=== PATIENT | female | born 1990 | race African-American/Black ===

== ENCOUNTER 2019-09-16 18:42 | Emergency (ER) | payer OTHER, SELFPAY ==
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
[2019-09-16 19:09] VITALS: BP 138/76; PULSE 86; RESP 18; TEMP 36.5; O2SAT 99
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
== END 2019-09-16 23:20 | disposition home or self-care (01) ==
PROVIDERS: Emergency Provider Emergency Medicine
DX: G80.9 Cerebral palsy, unspecified (principal); S16.1XXA Strain of muscle, fascia and tendon at neck level, initial encounter; S29.012A Strain of muscle and tendon of back wall of thorax, initial encounter; V43.12XA Car passenger injured in collision with other type car in nontraffic accident, initial encounter
CPT/HCPCS: 72100; 72125; 81025; 99284

== ENCOUNTER 2019-10-07 20:01 | Emergency (ER) | payer OTHER, SELFPAY ==
--- NOTE | ~2019-10-07 | XR_ITS ---
EXAMINATION: XR chest 1V portable DATE: 10/07/2019 21:01 INDICATION: Fever, shortness of breath, and cough. TECHNIQUE: A single frontal view of the chest was obtained. COMPARISON: None. FINDINGS: The chest demonstrates clear lungs without pneumonia, pleural effusion, or pneumothorax. Th e heart size is normal. IMPRESSION: 1. No acute cardiopulmonary disease. Reviewed, dictated and finalized at location A.
[2019-10-07 20:04] VITALS: BP 133/58; PULSE 127; RESP 22; TEMP 38.6; O2SAT 100
--- NOTE | 2019-10-07 20:36 | ED.FEVER ---
HPI - Fever General Chief Complaint: Fever Stated Complaint: cough Time Seen by Provider: 10/07/19 20:32 Source: patient Mode of arrival: ambulatory Limitations: no limitations History of Present Illness HPI Narrative: The pt is a 29 y/o female who presents to the ED c/o fever onset two days ago. Pt states that she was around a friend who was told to self-quarantine after traveling to [place], [place]. She notes that her friend was having cold symptoms a couple of weeks ago, but is unsure who told her to quarantine. 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 She states that he has been doing most of the running around, and has been sick. Pt states that her two youngest children were tested for 2019-nCoV today due to similar symptoms, but no other tests were performed. She states that she took them to Dr. Royal in [place], [place]. The pt states that she has tried Tylenol, but also notes that her fever has gotten as high as 105 degrees. Pt states that she was told to self-quarantine, and she should call the ED if she had worsening symptoms develop. She notes that she believes she got a flu shot. Pt reports sore throat, SMITH, cough, SOB, myalgia, fatigue, and rhinorrhea. She denies N/V/D. Pt notes that she does not have a PCP, but has been seeing Dr. Wisdom at the [facility]'s [place]. elicited complaint: fever Onset (ago): day(s) (2) Context: sick contacts Associated symptoms: myalgias, headache, rhinorrhea, sore throat, cough, shortness of breath and other (Fatigue) Treatments prior to arrival fever: acetaminophen Related Data Home Medications Medication Instructions Recorded Confirmed [id number] 1 tablet PO HS 10/07/19 [ 19] Allergies Allergy/AdvReac Type Severity Reaction Status Date / Time hydrocodone AdvReac Unknown ITCHING Verified 10/07/19 20:31 Review of Systems Review of Systems: All systems reviewed & are unremarkable except as noted in HPI and below Constitutional: Constitutional: Reports fatigue and Reports fever(s) ENT: Reports sore throat and Reports other (Rhinorrhea) Respiratory: Respiratory: Reports cough and Reports dyspnea Gastrointestinal: Gastrointestinal: Denies diarrhea, Denies nausea and Denies vomiting Musculoskeletal: Musculoskeletal: Reports myalgias Neurologic: Reports headache(s) [facility] Past Medical History Medical History (Updated 10/07/19 @ 23:11 by Belle Mohamud MD) Cerebral palsy induced hypertension Umbilical hernia Surgical History Surgical History (Updated 09/16/19 @ 21:09 by Geovanna Zayas) History of umbilical hernia repair Social History Social History (Updated 09/16/19 @ 21:10 by Geovanna Zayas) Smoking status: Never smoker Gender identity (if verbalized by the patient): Female Comments OB: Dr. Wisdom Exam Const: General: cooperative, no acute distress and alert Nutritional Appearance: well nourished Orientation/consciousness: patient oriented x3 Limitations: no limitations Resp: Effort & Inspection: normal respiratory effort Auscultation: clear to auscultation bilaterally Cardio: Rate: tachycardic Rhythm: regular rhythm GI: GI Palp: Yes Soft to palpation and No Tenderness to palpation present (GI) Auscultation: normal bowel sounds Skin: General skin exam: normal color Neuro: General: patient oriented x3 Cognition (Neuro): normal cognition Speech: normal speech Extrem: General: normal to inspection, full ROM and no clubbing, cyanosis or edema Psych: Mental Status: mental status grossly normal Affect: normal affect Attitude: cooperative Course SENIOR LINUX SYSTEMS ADMINISTRATOR/PA Physician Supervision Patient with unremarkable testing in the emergency department. Patient has symptoms consistent with viral syndrome. Cannot exclude possibility patient may have notable coronavirus infection. Tomeka
[2019-10-07 21:45] LABS: Basophils Percent Auto 0.3 % (0.2-1.2); Eosinophils Absolute Auto 0.2 K/mm3 (0-0.3); Eosinophils Percent Auto 1.4 % (0-4.4); Hematocrit 39.6 % (37.0-47.0); Hemoglobin 13.2 g/dL (12.0-15.0); Immature Granulocyte Absolute 0.04 K/mm3 (0.00-0.031); Immature Granulocyte Percent A 0.4 % (0-0.5); Lymphocytes Absolute Auto 1.47 K/mm3 (0.9-3.2); Lymphocytes Percent Auto 14.1 % (18.3-44.2); Mean Corpuscular HGB Conc 33.3 g/dl (32-36); Mean Corpuscular Hemoglobin 26.5 pg (26-34); Mean Corpuscular Volume 79.5 fl (80-100); Mean Platelet Volume 10.4 fl (7.4-10.4); Neutrophils Absolute Auto 7.7 K/mm3 (1.3-6.7); Neutrophils Percent Auto 73.8 % (45.5-73.1); Platelet Count Result 346 k/mm3 (150-375); Red Blood Count 4.98 M/mm3 (4.2-5.4); Red Cell Distribution Width 15.7 % (11.5-14.5); White Blood Count 10.4 K/mm3 (4.5-10.0)
--- NOTE | 2019-10-07 21:54 | PC.NURSE ---
Pt. refused IV placement and medication stating she doesn't see the point in them due to her having test ran. MD Christie notified.
[2019-10-07 21:56] LABS: Lactic Acid Reflex 0.7 mmol/L (0.7-2.1)
[2019-10-07 21:57] LABS: Alanine Aminotransferase 16 U/L (4-35); Albumin Level 4.5 g/dL (3.5-5.1); Alkaline Phosphatase 141 U/L (38-126); Aspartate Amino Transferase 27 U/L (14-36); Bilirubin,Total 0.6 mg/dL (0.2-1.3); Blood Urea Nitrogen 7 mg/dL (7-17); Calcium 8.9 mg/dL (8.4-10.2); Carbon Dioxide 25 mmol/L (22-30); Chloride 101 mmol/L (98-107); Estimated Glomerular Filt Rate > 60; Glucose 90 mg/dL (65-105); Potassium 3.6 mmol/L (3.4-5.0); Sodium 136 mmol/L (137-145)
[2019-10-07 21:59] LABS: Add Urine Microscopic? YES; Appearance Urine Clear (Clear); Bilirubin Urine Negative (Negative); Blood Urine Negative (Negative); Color Urine Yellow (Yellow); Glucose Urine UA Negative (Negative); Ketones Urine Negative (Negative); Leukocyte Esterase Ur 1+ LEU/UL (Negative); Mucus Urine Moderate /lpf; Nitrate Urine Negative (Negative); Protein Urine 1+ mg/dL (Negative); RBC Urine 0-2 /hpf (0-2); Squamous Epithelial Cell Urine Many /hpf (Few); WBC Urine 0-3 /hpf
[2019-10-07 22:00] LABS: Specific Grav Ur 1.032 (1.001-1.035)
== END 2019-10-07 23:22 | disposition home or self-care (01) ==
PROVIDERS: Emergency Provider Emergency Medicine
DX: B34.9 Viral infection, unspecified (principal); G80.9 Cerebral palsy, unspecified
CPT/HCPCS: 36415; 71045; 80053; 81001; 83605; 85025; 86140; 87040; 87081; 87804; 87880; 99283

== ENCOUNTER 2021-02-08 19:18 | Observation (INO) | payer OTHER, SELFPAY ==
[2021-02-08 19:37] VITALS: BP 130/68; PULSE 81
[2021-02-08 19:45] VITALS: BP 127/69; PULSE 85; BMI 36.9
--- NOTE | 2021-02-08 19:51 | OBADM ---
This patient, Angella Santos, admitted to the OB room OB Post 117 for observation. Patient/family oriented to hospital policies and general routines including ID bracelet, bed and alarms, visiting hours, pain management, procedures, bathroom and other care routines, personal items, smoking policy, room service/diet, and visiting hours. Patient/Family are encouraged to report perceived risks to care and to ask questions if they do not understand what they are told or what they should do.
--- NOTE | 2021-02-08 19:51 | PC.NURSE ---
pt fell down 6-7 steps at home prior to arrival. pt states she lost balance and fell onto left hip/side. pt denies leaking or bleeding. pt states she feels occasional flutter movements, none since fall. no pain with palpation. pt abd soft and non tender.
[2021-02-08 19:55] VITALS: RESP 18; TEMP 36.5
--- NOTE | 2021-03-10 19:08 | PM.OBTRLD ---
OB - Triage/Final Diagnosis Visit Information Comments/Additional reasons for admission: I have assessed the risk for this patient, Angella Santos, and determined that she would benefit from observation care. Final Diagnosis (1) Fall: Code(s): W19.XXXA - Unspecified fall, initial encounter Status: Acute
== END 2021-02-08 20:14 | disposition home or self-care (01) ==
PROVIDERS: Admitting Provider Obstetrics & Gynecology; PCP Family Medicine; Visit Provider Obstetrics & Gynecology
DX: O26.892 Other specified pregnancy related conditions, second trimester (principal); W19.XXXA Unspecified fall, initial encounter; Z3A.19 19 weeks gestation of pregnancy
CPT/HCPCS: G0378; G0379

== ENCOUNTER 2021-03-20 16:31 | Outpatient (CLI) | payer OTHER, SELFPAY ==
[2021-03-20] VITALS (28 sets, daily range): BP systolic 98–124; BP diastolic 60–81; PULSE 90–107; RESP 30; TEMP 36.7; O2SAT 93–100; BMI 38.7
--- NOTE | 2021-03-20 17:27 | PC.NURSE ---
Shahid Borja CNM returned page and informed of pt's c/o headache x's 3 days, dizziness and blurred vision started today. RUQ tightness discomfort. Pt states the BP she checked at home was 160/114. BP here 124/74. Discussed pt's resp rate of 30 at rest in bed. Pt denies feeling SOB. O2 sats 96-97%. Pt states she was tested for COVID in the last half of February, but was negative- symptoms have resolved and pt has been afebrile for days. Informed of single variable decel in tracing appropriate for 25 wks gestation. No contractions noted. Order received to obtain baseline labs.
[2021-03-20] MEDS: ACETAMINOPHEN 500 MG TABLET 1000 MG PO (18:04)
[2021-03-20 18:14] LABS: Basophils Percent Auto 0.2 % (0.2-1.2); Eosinophils Absolute Auto 0.1 K/mm3 (0-0.3); Hematocrit 36.4 % (37.0-47.0); Immature Granulocyte Absolute 0.07 K/mm3 (0.00-0.031); Immature Granulocyte Percent A 0.7 % (0-0.5); Lymphocytes Absolute Auto 1.96 K/mm3 (0.9-3.2); Lymphocytes Percent Auto 18.5 % (18.3-44.2); Mean Corpuscular Hemoglobin 28.5 pg (26-34); Mean Corpuscular Volume 86.5 fl (80-100); Mean Platelet Volume 9.9 fl (7.4-10.4); Monocytes Absolute Auto 0.9 K/mm3 (0.1-0.6); Monocytes Percent Auto 8.6 % (2.6-8.5); Neutrophils Absolute Auto 7.5 K/mm3 (1.3-6.7); Platelet Count Result 346 k/mm3 (150-375); Red Blood Count 4.21 M/mm3 (4.2-5.4); Red Cell Distribution Width 15.1 % (11.5-14.5); White Blood Count 10.6 K/mm3 (4.5-10.0)
[2021-03-20 18:23] LABS: Creatinine Urine 104.9 mg/dL; Total Protein Urine Random 9 mg/dL; Ur Ttl Prot Creatinine Ratio 0.09 mg/mg (0-0.20)
[2021-03-20 18:23] LABS: Alanine Aminotransferase 11 U/L (4-35); Albumin Level 3.4 g/dL (3.5-5.1); Alkaline Phosphatase 81 U/L (38-126); Anion Gap 5 mmol/L (8-16); Aspartate Amino Transferase 22 U/L (14-36); Bilirubin,Total 0.4 mg/dL (0.2-1.3); Blood Urea Nitrogen 6 mg/dL (7-17); Calcium 8.7 mg/dL (8.4-10.2); Carbon Dioxide 20 mmol/L (22-30); Chloride 107 mmol/L (98-107); Estimated Glomerular Filt Rate > 60; Glucose 93 mg/dL (65-110); Potassium 3.4 mmol/L (3.4-5.0); Sodium 132 mmol/L (137-145); Uric Acid 2.9 mg/dL (2.5-7.5)
[2021-03-20 18:34] LABS: Add Urine Microscopic? YES; Appearance Urine Clear (Clear); Bilirubin Urine Negative (Negative); Blood Urine Negative (Negative); Color Urine Yellow (Yellow); Glucose Urine UA Negative (Negative); Ketones Urine Negative (Negative); Leukocyte Esterase Ur Negative LEU/UL (Negative); Mucus Urine Rare /lpf; Nitrate Urine Negative (Negative); Protein Urine Negative (Negative); RBC Urine 0-2 /hpf (0-2); Specific Grav Ur 1.014 (1.001-1.035); Squamous Epithelial Cell Urine Occasional /hpf (Few); WBC Urine 0-3 /hpf
== END 2021-03-20 19:25 | disposition home or self-care (01) ==
LOC: ANHOBOP 16:35 → ANHOBPP 16:36
PROVIDERS: Advanced Practice Midwife; PCP Family Medicine; Visit Provider Obstetrics & Gynecology
DX: O16.2 Unspecified maternal hypertension, second trimester (principal); Z3A.25 25 weeks gestation of pregnancy
CPT/HCPCS: 36415; 59025; 80053; 81001; 82570; 84156; 84550; 85025; 99199; A9270

== ENCOUNTER 2021-05-17 01:02 | Observation (INO) | payer OTHER, SELFPAY ==
[2021-05-17 01:19] VITALS: BP 130/76; PULSE 104
[2021-05-17 01:56] LABS: Add Urine Microscopic? YES; Appearance Urine Cloudy (Clear); Bacteria Urine Trace /hpf; Bilirubin Urine Negative (Negative); Blood Urine Negative (Negative); Color Urine Amber (Yellow); Glucose Urine UA Negative (Negative); Ketones Urine Negative (Negative); Leukocyte Esterase Ur 1+ LEU/UL (NEGATIVE); Mucus Urine Rare /lpf; Nitrate Urine Negative (Negative); Protein Urine 1+ mg/dL (Negative); RBC Urine 0-2 /hpf (0-2); Specific Grav Ur 1.029 (1.001-1.035); Squamous Epithelial Cell Urine Many /hpf (Few)
[2021-05-17 02:00] VITALS: BMI 40.0
[2021-05-17] MEDS: DEXTROSE 5%/LACTATED RINGERS 1,000 ML 999 ML IV CONT (02:36)
[2021-05-17] MEDS: CYCLOBENZAPRINE HCL 10 MG TABLET PO (02:47)
[2021-05-17] MEDS: ONDANSETRON INJ 4 MG/2 ML VIAL IV PUSH (02:47)
[2021-05-17 03:45] VITALS: TEMP 36.7
--- NOTE | 2021-05-17 06:15 | OBADM ---
This patient, Angella Santos, admitted to the OB room OB Post 116 for observation. Patient/family oriented to hospital policies and general routines including ID bracelet, bed and alarms, visiting hours, pain management, procedures, bathroom and other care routines, personal items, smoking policy, room service/diet, and visiting hours. Patient/Family are encouraged to report perceived risks to care and to ask questions if they do not understand what they are told or what they should do.
--- NOTE | 2021-05-31 08:00 | PM.OBTRLD ---
OB - Triage/Final Diagnosis Visit Information Comments/Additional reasons for admission: I have assessed the risk for this patient, Angella Santos, and determined that she would benefit from observation care. Evaluation Laboratory results: Laboratory Tests 05/17/21 01:22 Urine Color Danna Urine Appearance Cloudy H Urine pH 6.0 Ur Specific Stirling 1.029 Urine Protein 1+ H Urine Glucose (UA) Negative Urine Ketones Negative Ur Blood (Man) Negative Urine Nitrate Negative Urine Bilirubin Negative Urine Urobilinogen 4.0 H Ur Leukocyte Esterase 1+ H Urine RBC 0-2 Urine WBC 4-6 H Ur Squamous Epith Cells Many H Urine Bacteria Trace Urine Mucus Rare Final Diagnosis (1) False labor: Code(s): O47.9 - False labor, unspecified Status: Acute
== END 2021-05-17 06:00 | disposition home or self-care (01) ==
PROVIDERS: Admitting Provider Obstetrics & Gynecology; PCP Family Medicine; Visit Provider Obstetrics & Gynecology
DX: O47.03 False labor before 37 completed weeks of gestation, third trimester (principal); Z3A.33 33 weeks gestation of pregnancy
CPT/HCPCS: 81001; 87086; 87088; 96374; A9270; G0378; G0379; J2405; J7121

== ENCOUNTER 2021-06-17 14:07 | Inpatient (IN) | payer OTHER, SELFPAY ==
[2021-06-17] VITALS (16 sets, daily range): BP systolic 85–162; BP diastolic 14–88; PULSE 102–123; TEMP 36.6–37.2; BMI 50.5
--- NOTE | 2021-06-17 14:07 | OBADM ---
This patient, Angella Santos, admitted to the OB room Labor/Delivery/Recovery 105 for observation. Patient/family oriented to hospital policies and general routines including ID bracelet, bed and alarms, visiting hours, pain management, procedures, bathroom and other care routines, personal items, smoking policy, room service/diet, and visiting hours. Patient/Family are encouraged to report perceived risks to care and to ask questions if they do not understand what they are told or what they should do.
--- NOTE | 2021-06-17 19:50 | LDADM ---
This patient, Angella Santos, was admitted to Labor/Delivery/Recovery 105 on 06/17/21 at 14:07. Plans for labor, pain management and were discussed with patient. Patient/family oriented to hospital policies and general routines including ID bracelet, bed and alarms, visiting hours, pain management, procedures, bathroom and other care routines, personal items, smoking policy, room service/diet and guest tray routines, security routines, and visiting hours. Patient/Family are encouraged to report perceived risks to care and to ask questions if they do not understand what they are told or what they should do. See OBIX for further documentation.
--- OUTSIDE RECORDS SUMMARY | 2021-06-17 19:51 | XMS_ITS ---
:1990 Author Care Team Providers Name Role Phone Chloe Camp Primary Care Provider Unavailable Allergies Code Code System Name Reaction Severity Status Onset 161 RxNorm Acetaminophen ? ? Active ? 2670 RxNorm Codeine ? ? Active ? Medications Name Status Start Date Stop Date ? ? cyclobenzaprine 10 mg tablet Completed ? TAKE 1 TABLET BY MOUTH THREE TIMES DAILY NEEDED dicloxacillin 500 mg capsule Completed 11/26/201804/2021 take 1 capsule by oral route every 6 h ours 1 hour before a meal or 2 hours after a meal docusate sodium 100 mg capsule Completed ? 08/11/2020 TAKE 1 CAPSULE BY MOUTH TWICE DAILY NEEDED FOR CONSTIPATION Macrobid 100 mg capsule Completed 08/03/2018 09/30/19 19 take 1 capsule by oral route every 12 hours with food [place] (PF) 275 mg/1.1 mL subcutaneous auto-injector Completed ? 05/29/2021 Inject 1 mL by subcutaneous route. ondansetron 8 mg disintegrating tablet Active ? Not available DISSOLVE 1 TABLET ON THE TONGUE TWICE DAILY oxycodone-acetaminophen 5 mg-325 mg tablet Completed ? 05/29/2021 TK 1 T PO Q 4 TO 6 H PRN Pepcid Active ? Not available Active ? Not available Unisom (diphenhydramine) Active ? Not dao ilable Vitamin B6 Active ? Not available Zofran 4 mg tablet Completed 12/23/2016 06/02/2017 take 1 by Oral route every 6 hours as needed Problems Name Status Onset Date Source ? Detection Examination Unknown 12/23/2016
--- OUTSIDE RECORDS SUMMARY | 2021-06-17 19:52 | XMS_ITS ---
:1990 Author Care Team Providers Name Role Phone VIVIAN LANDEROS MD Primary Care Provider [phone] Allergies Code Code System Name Reaction Severity Status Onset 988892 RxNorm Vicodin Itching Moderate to Active ? Severe Medications Name Status Start Date Stop Date ? ? amoxicillin 875 mg-potassium clavulanate Unknown ? Not available 125 mg tablet azithromycin 250 mg tablet Active ? Not a vailable hydrocodone 5 mg-acetaminophen 325 mg Active ? Not available tablet ibuprofen 200 mg tablet Unknown ? Not avai lable Junel FE 08/01 (28) 1 mg-20 mcg (21)/75 mg (7) tablet Active ? Not available Take 1 tablet every day by oral route as directed. meloxicam 7.5 mg tablet Unknown ? Not avai lable Microgestin 08/01 (21) 1 mg-20 mcg tablet Unknown ? Not available naproxen 500 mg tablet Active ? Not avail able Nexplanon 68 mg subdermal implant Unknown ? Not available Inject by subcutaneous route. nitrofurantoin monohydrate/macrocrystals Active ? Not available 100 mg capsule permethrin 5 % topical cream Active ? Not available sulfamethoxazole 800 mg-trimethoprim 160 Unknown ? Not available mg tablet Problems Name Status Onset Date Source ? Cerebral Palsy Active ? Encounter Urinary Tract Infectious Disease Active ? Encounter Pain in Pelvis Active ? Encounter Physiologic Amenorrhea A
--- OUTSIDE RECORDS SUMMARY | 2021-06-17 19:52 | XMS_ITS | Encounter Summary ---
:1990 Author Reason for Visit OB visit 37w2d Assessment and Plan 1. Routine care Discussion Note: None recorded.Patient educational handouts: No information available. Plan of Care Reminders Provider Appointments Ob Routine Elana Camp CNM 06/18/2021 11:15AM ? U/S OB BPP Ultras ound Two, 06/18/2021 TECH 10:30AM ? Nst Nst, , EQUI P 06/18/2021 10:00AM ? Ob Routine Chloe Camp CNM 06/25/2021 11:00AM ? U/S OB BPP Ultras ound Two, 06/25/2021 TECH 10:30AM ? Nst Nst, , EQUI P 06/25/2021 10:00AM ? Ob Routine Chloe Camp CNM 07/02/2021 11:00AM ? U/S OB BPP Ultras ound, TECH 07/02/2021 10:30AM ? Nst Nst, , EQUI P 07/02/2021 10:00AM Lab None ? ? recorded. Referral None ? ? recorded. Procedures None ? ?
--- OUTSIDE RECORDS SUMMARY | 2021-06-17 19:52 | XMS_ITS | Encounter Summary ---
:1990 Author Reason for Visit OB visit Assessment and Plan Assessment Note Patient is ___weeks . Discu ssed plan. 1. Routine care Discussion Note: None recorded.Patient educational handouts: No information available. Plan of Care Reminders Provider Appointments Ob Routine Elana Camp, SUSANNE 06/18/2021 11:15AM ? U/S OB BPP Ultras ound Two, 06/18/2021 TECH 10:30AM ? Nst Nst, , EQUI P 06/18/2021 10:00AM ? Ob Routine Chloe Camp, DRISS 06/25/2021 11:00AM ? U/S OB BPP Ultras ound Two, 06/25/2021 TECH 10:30AM ? Nst Nst, , EQUI P 06/25/2021 10:00AM ? Ob Routine Chloe Camp, DRISS 07/02/2021 11:00AM ? U/S OB BPP Ultras ound, TECH 07/02/2021 10:30AM ? Nst Nst, , EQUI P 07/02/2021 10:00AM Lab None ? ? recorded. Referral None ? ? recorded
--- OUTSIDE RECORDS SUMMARY | 2021-06-17 19:52 | XMS_ITS | Encounter Summary ---
:1990 Author Reason for Visit None recorded. Assessment and Plan 1. Maternal obesity complicating , childbirth and the puerperium, antepartum ? non-stress test Discussion Note: None recorded.Patient educational handouts: No information available. Plan of Care Reminders Provider Appointments Ob Routine Elana Camp, DRISS 06/18/2021 11:15AM ? U/S OB BPP Ultras [...]
--- OUTSIDE RECORDS SUMMARY | 2021-06-17 19:52 | XMS_ITS | Encounter Summary ---
:1990 Author Reason for Visit None recorded. Assessment and Plan 1. Excessive weight gain Discussed diet changes and how to adjust meals to decrease carbs and increase protein and healthy fats. Advised to adjust to a low sugar, low carb diet, and higher proteins. Reviewed different meal adjustments and ways to decrease c arbs with still getting all of the nutrients she needs. Advised to follow 3 meals a day with snacks in between meals with importance on the bedtime snack. Reviewe d nutritional label with patient and how to count carbs for each meal. Advised to be conscientious of meals and record foods that increase her levels and to avoid those types of foods. Reviewed acceptable drinks for patient and what to avoid. Pt states that she is very well versed i n dieting and used to follow a strict diet with successful weight loss. Pt admits to eating bad foods, fast foods, frozen foods, and only cooks on Sundays. Discus sed cooking more home made meals, meal p repping meals if she experiences a lack of time to cook each night. Pt states that she know what she needs to do just mentally getting there. Also discussed symptoms of nausea, visua l changes, dizziness, etc. - advised pt if any symptoms arise to check BP and to call the office for further evaluation and POC. Pt advised likely this weight gai n is causing many different issues and h opefully through better dieting and weight control she will begin to feel better. Pt agrees. All questions answered and explained in depth, no further concerns. Discussion Note: None recorded.Patient educational handouts: No information available. Plan of Care Reminders Provider Appointments Ob Routine Elana Camp CNM 06/18/2021 11:15AM ? U/S OB BPP Ultras ound Two, 06/18/2021 TECH 10
--- OUTSIDE RECORDS SUMMARY | 2021-06-17 19:52 | XMS_ITS | Encounter Summary ---
:1990 Author Reason for Visit OB visit [id number] [place] [id number] LOT [id number] EXP 03/2022 Assessment and Plan Assessment Note Patient is ___weeks . Discu ssed plan. 1. History of premature delivery ? [place] (PF) 275 mg/1.1 mL subcutaneous auto-injector Discussion Note: None recorded.Patient educational handouts: No [...]
--- OUTSIDE RECORDS SUMMARY | 2021-06-17 19:52 | XMS_ITS | Encounter Summary ---
:1990 Author Reason for Visit None recorded. Assessment and Plan 1. Consultation consult regarding co ntractions while nursing 2 1/2 year old. Pt is 30 weeks and attempting to d ecrease nursing with 2 1/2 year old due to contractions with nursing. Pt instructed on distraction methods and different comfort measures to help decrease amount of time 2 1/2 year old nurses. Pt has an over supply of breast milk and easily experiences cl ogged ducts and mastitis with any decreased nursing. Pt would like to decrease the a mount of time the 2 1/2 year old nurses because she is concerned about l abor and delivery but is concerned about fully weaning because she also feels she may need to tandem nurse after delivery to help prevent mastitis. Pt instructed to increase water intake and rest. Pt also instructed on low sugar sports drinks to help with hydration because pt declines regular strength tylenol for relief with uterine irritability. Pt is going to attempt to only nurse 2 1/2 year old at nap and bedtime. Pt will follow up with me next week when she is here for her meryl injectio n. Malu Dinero, MILITARY PAY TECHNICIAN [facility] Discussion Note: None recorded.Patient educational handouts: No information available. Plan of Care Reminders Provider Appointments Ob Routine Elana Camp CNM 06/18/2021 11:15AM ? U/S OB BPP Ultras ound Two, 06/18/2021 TECH 10:30AM ? Nst Nst, , EQUI P 06/18/2021 10:00AM ? Ob Routine Chloe Camp CNM
--- OUTSIDE RECORDS SUMMARY | 2021-06-17 19:52 | XMS_ITS | Encounter Summary ---
:1990 Author Reason for Visit OB visit [id number] upper arm. [facility] [id number] [facility] [id number] EXP 03/2022 MIGUEL ANGEL INJECTION ,RMJohn Assessment and Plan 1. Routine care 2. Fatigue ? TSH, serum or plasma 3. -induced hypertensio n ? CBC w/ auto diff ? CMP, serum or plasma ? uric acid, serum or plasma 4. History of premature delivery ? [place] (PF) 275 mg/1.1 mL subcutaneous auto-injector Discussion [...] 11:00AM ? U/S OB BPP Ultras ound, [place]
--- OUTSIDE RECORDS SUMMARY | 2021-06-17 19:52 | XMS_ITS | Encounter Summary ---
:1990 Author Reason for Visit OB visit; injection [id number] [place] [id number] 06/2022 Assessment and Plan Assessment Note Patient is ___weeks . Discu ssed plan. 1. History of premature delivery ? Rosa M (PF) 275 mg/1.1 mL subcutaneous auto-injector Discussion [...]
--- OUTSIDE RECORDS SUMMARY | 2021-06-17 19:52 | XMS_ITS | Encounter Summary ---
:1990 Author Reason for Visit OB visit OB [id number] EDC 06/30/2021 LMP 09/23/2020 Assessment and Plan Assessment Note Patient is _35__weeks . Dis cussed plan. 1. Routine care Discussion Note: None [...]
--- OUTSIDE RECORDS SUMMARY | 2021-06-17 19:52 | XMS_ITS | Encounter Summary ---
:1990 Author Reason for Visit None recorded. Assessment and Plan 1. screening ? US, obstetric, follow-up Discussion Note: None recorded.Patient educational handouts: No [...]
--- OUTSIDE RECORDS SUMMARY | 2021-06-17 19:52 | XMS_ITS | Encounter Summary ---
:1990 Author Reason for Visit None recorded. Assessment and Plan 1. Maternal obesity complicating , childbirth and the puerperium, antepartum ? US, obstetric, follow-up ? US, obstetric, biophysical profile + non-stress test Discussion Note: None recorded.Patient educational [...]
[2021-06-17] MEDS: AMPICILLIN 2 GM/NS 100 ML 2 GM/100 ML BAG IVPB (20:08)
[2021-06-17] MEDS: LACTATED RINGERS 1,000 ML 125 ML IV CONT ×2 (20:08→22:10)
--- NOTE | 2021-06-17 20:15 | P.HP_ITS ---
Obstetrics - Admit Note Admission Note: record reviewed. No pertinent additions to the history and/or any subsequent changes in the physical findings that are not consistent with the expected course of the were found. Pt admitted in labor at 5 cm and uncomfortable, questionable decelerations with pt back in bed after res troom, plan delivery. SVE /-90/-2 AROM large amount of clear odorless fluid Additions to the history and/or subsequent changes in the physical findings follow. None.
[2021-06-17 20:19] LABS: Basophils Percent Auto 0.2 % (0.2-1.2); Eosinophils Percent Auto 0.2 % (0-4.4); Hematocrit 33.8 % (37.0-47.0); Hemoglobin 11.1 g/dL (12.0-15.0); Immature Granulocyte Absolute 0.05 K/mm3 (0.00-0.031); Immature Granulocyte Percent A 0.5 % (0-0.5); Lymphocytes Absolute Auto 2.17 K/mm3 (0.9-3.2); Lymphocytes Percent Auto 19.8 % (18.3-44.2); Mean Corpuscular HGB Conc 32.8 g/dl (32-36); Mean Corpuscular Hemoglobin 26.1 pg (26-34); Mean Corpuscular Volume 79.3 fl (80-100); Mean Platelet Volume 9.7 fl (7.4-10.4); Monocytes Absolute Auto 0.9 K/mm3 (0.1-0.6); Monocytes Percent Auto 7.9 % (2.6-8.5); Neutrophils Absolute Auto 7.8 K/mm3 (1.3-6.7); Neutrophils Percent Auto 71.4 % (45.5-73.1); Nucleated Red Blood Cells Perc 0.2 % (0.0-0.2); Platelet Count Result 425 k/mm3 (150-375); Red Blood Count 4.26 M/mm3 (4.2-5.4); Red Cell Distribution Width 17.6 % (11.5-14.5); White Blood Count 10.9 K/mm3 (4.5-10.0)
[2021-06-17] MEDS: OXYTOCIN 30 UNITS/NS 500 ML 30 UNITS/500 ML BAG 999 UNITS IV CONT (22:54)
--- NOTE | 2021-06-17 23:04 | PM.OBPRVD ---
OB - Delivery Note Procedure Delivery date: 06/17/21 Procedure: vaginal delivery events: Labor Augmentation Intrapartal events: Extended Tachycardia Induction method: none Delivery augmentation: rupture of membranes Delivery monitor: external FHT and external uterine Route of delivery: Episiotomy description: None Laceration Description: None Specimen: Yes Quantitative Blood Loss (ml): 90 Anesthesia type: None Disposition: floor Baby Date of : 06/17/21 Time of : 22:49 Weeks of gestation at delivery: 38 gender: Female Weight (pounds): 8 Weight (ounces): 1 presentation: vertex position: Left Occiput Anterior Placenta delivery description: Spontaneous cord vessel description: 3 Vessels, Clamped/Cut and Delayed Cord Clamping score one minute: 8 score five minutes: 9 Narrative: mother and baby skin to skin in stable condition
[2021-06-17] MEDS: OXYTOCIN 30 UNITS/NS 500 ML 30 UNITS/500 ML BAG 125 UNITS IV CONT (23:31)
[2021-06-18] VITALS (12 sets, daily range): BP systolic 116–142; BP diastolic 68–94; PULSE 86–106; RESP 16–24; TEMP 36.2–37; O2SAT 96–100
[2021-06-18] MEDS: IBUPROFEN 600 MG TABLET PO ×3 (00:56→20:45)
--- NOTE | 2021-06-18 01:30 | PC.NURSE ---
pt transferred with belongings, spouse and baby to room 112.
[2021-06-18] MEDS: ACETAMINOPHEN 325 MG TABLET 650 MG PO ×2 (04:15→15:36)
[2021-06-18 05:44] LABS: Hematocrit 32.4 % (37.0-47.0); Hemoglobin 10.6 g/dL (12.0-15.0)
--- NOTE | 2021-06-18 07:22 | OBPPTRN ---
Patient transferred to post room #291 via wheelchair. Support person present. Oriented to unit, room, information board, rooming in, admission packet and security measures. Patient verbalizes understanding.
--- NOTE | 2021-06-18 08:02 | P.PNOB_ITS ---
OB - PN: Subj Subjective Date/time seen: 06/18/21 08:02 Patient comments: no complaints baby status: doing well OB - PN: Obj Data Labs CBC & Chem 7: 06/18/21 05:32 Labs: Laboratory Results - last 24 hr 06/17/21 06/17/21 06/18/21 20:02 20:02 05:32 WBC 10.9 H RBC 4.26 Hgb 11.1 L 10.6 L Hct 33.8 L 32.4 L MCV 79.3 L MCH 26.1 MCHC 32.8 RDW 17.6 H Plt Count 425 H MPV 9.7 Immature Gran % (Auto) 0.5 Neut % (Auto) 71.4 Lymph % (Auto) 19.8 [place] % (Auto) 7.9 Eos % (Auto) 0.2 Baso % (Auto) 0.2 Lymph # (Auto) 2.17 [place] # (Auto) 0.9 H Eos # (Auto) 0.0 Baso # (Auto) 0.0 Abs Immat Gran (auto) 0.05 H Absolute Neuts (auto) 7.8 H Absolute Nucleated RBC 0.0 Nucleated RBC % 0.2 Blood Type O Positive Antibody Screen Negative OB - PN A/P Plan day: 1 Plan: routine care Time Spent With Patient Time: Total time spent is greater than 50% in coordination of care (as documented) at patient's floor/unit and/or counseling patient: Time with patient: less than 15 minutes Review of Systems 2 Review of Systems: All systems reviewed & are unremarkable except as noted in HPI and below Exam Narrative: Fundus firm and vaginal flow controlled. No lower ext redness, warmth, or edema. Negative homans. Const: General: comfortable Chest: Breast/axilla inspection: normal inspection of the breasts Resp: Effort & Inspection: normal respiratory effort Cardio: Rate: regular rate GI: GI Palp: Yes Soft to palpation Psych: Appearance: grossly normal Affect: normal affect Attitude: cooperative Thought content: Yes Normal thought content present Judgement: Good judgement present (Psych)
--- NOTE | 2021-06-18 08:55 | PC.NURSE ---
Mother called out for assist with feeding, reporting is sleepy. Mother states she is currently her 4 yr old. Reviewed tandem , advising to feed first. Mother reports she feels engorged, suggested self expression before infant will latch to soften and assist with deep latch. Mother states she feeds on demand and may feed every 2-3 hours and will allow to sleep up to 4 hours if needed. Reviewed reasoning for protocol. Infant is able to freely thrust tongue past gum ridge and flange both lips. Mother believes top lip is tied. Skin is intact on both nipples, no redness and bruising noted. Reviewed feeding cues, frequencies, duration of feedings, feeding elimination flow sheet, and signs of adequate intake. Demonstrated stimulation techniques to wake for feeding. Assisted with to breast. Reviewed positioning/alignment in football, holding breast in ?C? hold and guided asymmetrical latch on. Reviewed rational for each. able to latch correctly within a few attempts. nursed eagerly with steady draws and frequent swallowing noted, some pausing noted. Reviewed signs of a correct latch, effective nursing and suck swallow ratio. Suggested mother stimulate while feeding to increase stimulation for milk supply, for increased intake and to assist with maintaining deep latch. Infant would slip to shallow latch causing tenderness. Demonstrated how to adjust latch more deeply while feeding as needed. Mother reports she can feel the difference in latch with no tenderness. Nipple care reviewed of lanolin after feedings, warm compresses as needed. Instructed mother to call out for RN assistance if she is unable to latch for feeding or she has discomfort with nursing. Instructed feeding should be initiated three hours from start of last feeding or if feeding cues are noted before. Mother voiced understanding of information shared.
[2021-06-19] MEDS: IBUPROFEN 600 MG TABLET PO (05:12)
[2021-06-19 07:02] LABS: Rapid Plasma Reagin Non-Reactive (NonReactive)
--- NOTE | 2021-06-19 07:35 | PM.OBPNVD ---
OB - PN: Subj Subjective Date/time seen: 06/19/21 07:36 Patient comments: no complaints baby status: doing well OB - PN: Obj Data Labs CBC & Chem 7: 06/18/21 05:32 Labs: Laboratory Results - last 24 hr 06/17/21 20:02 RPR Non-reactive OB - PN A/P Plan day: 2 Plan: routine care and discharge home Time Spent With Patient Time: Total time spent is greater than 50% in coordination of care (as documented) at patient's floor/unit and/or counseling patient: Review of Systems Review of Systems: All systems reviewed & are unremarkable except as noted in HPI and below Exam Const: General: cooperative, healthy appearing and comfortable
--- NOTE | 2021-06-19 07:37 | P.DS_ITS ---
DS: Admitting Diagnosis Discharge Date 06/19/21 Admitting Diagnosis Labor OB - DS: Summary OB Procedures : None OB Procedures Intrapartum: Spontaneous Vag Delivery OB Procedures: : None Time Spent with Patient Time attestation: Total time spent providing and/or coordinating discharge services: DS: Data Data Completed and Pending Pending studies at discharge: Pending at discharge 06/18/21 00:02 Surgical [PTH] Routine Labs on day of discharge: Labs from last 24 hours 06/17/21 20:02 RPR Non-reactive Discharge Plan Discharge Attending physician on discharge: Olimpia Rogers Discharging Clinician: Michelle Borja Patient Disposition: Home, Self-Care Activity: pelvic rest Diet: regular Patient Instructions: Antibiotic Form Stand Alone Forms: General Discharge Information Follow-up/Referrals: Michelle Borja CNM [Certified Nurse Director Of Midwifery/Staff Midwife] - 4 Weeks Discharge Medications: New ibuprofen 600 mg Tablet 600 mg PO Q6H PRN (Reason: Cramping) Qty: 30 RF: 0 Continued 19 29 mg iron- 1 mg Tablet,Chewable 1 tablet PO DAILY RF: 0 Date of admission: 06/17/21 14:07 Primary Care Provider: Parminder,Tana Bellamy Admitting Provider: Olimpia Rogers Attending physician on admission: Olimpia Rogers Condition: Stable
[2021-06-19 07:55] VITALS: BP 135/89; PULSE 79; RESP 18; TEMP 36.5; O2SAT 99
[2021-06-19] MEDS: TETANUS,DIPHTHERIA,AC PERTUSSIS ADULT (0.5 ML) BOOSTRIX IM (11:15)
[2021-06-20 09:43] VITALS: BP 115/72; PULSE 90; RESP 20; TEMP 37; O2SAT 100
== END 2021-06-19 12:20 | disposition home or self-care (01) | DRG 560 ==
LOC: ANHLDR 19:49 → ANHOBPP 06-18 01:35 → ANHOB2 06-18 07:32
PROVIDERS: Advanced Practice Midwife; Admitting Provider Obstetrics & Gynecology; PCP Family Medicine; Referring Provider Advanced Practice Midwife; Visit Provider Obstetrics & Gynecology
DX: O36.8330 Maternal care for abnormalities of the fetal heart rate or rhythm, third trimester, not applicable or unspecified (principal); Z37.0 Single live birth; Z3A.38 38 weeks gestation of pregnancy; O99.824 Streptococcus B carrier state complicating childbirth; Z23 Encounter for immunization; O99.354 Diseases of the nervous system complicating childbirth; G80.9 Cerebral palsy, unspecified
CPT/HCPCS: 36415; 85014; 85018; 85025; 86592; 86850; 86900; 86901; 88307; 90471; 90653; 90715; A9270; G0008; J0290; J2590; J7120

== ENCOUNTER 2022-12-19 11:54 | Outpatient (CLI) | payer OTHER, SELFPAY ==
[2022-12-19] VITALS (7 sets, daily range): BP systolic 86–137; BP diastolic 47–73; PULSE 100–111
[2022-12-19 12:50] LABS: Basophils Percent Auto 0.1 % (0.2-1.2); Eosinophils Absolute Auto 0.1 K/mm3 (0-0.3); Eosinophils Percent Auto 0.4 % (0-4.4); Hematocrit 37.2 % (37.0-47.0); Hemoglobin 12.5 g/dL (12.0-15.0); Immature Granulocyte Absolute 0.09 K/mm3 (0.00-0.031); Immature Granulocyte Percent A 0.7 % (0-0.5); Lymphocytes Percent Auto 15.6 % (18.3-44.2); Mean Corpuscular HGB Conc 33.6 g/dl (32-36); Mean Corpuscular Hemoglobin 28.7 pg (26-34); Mean Corpuscular Volume 85.3 fl (80-100); Mean Platelet Volume 9.7 fl (7.4-10.4); Monocytes Percent Auto 7.4 % (2.6-8.5); Neutrophils Absolute Auto 10.2 K/mm3 (1.3-6.7); Neutrophils Percent Auto 75.8 % (45.5-73.1); Platelet Count Result 381 k/mm3 (150-375); Red Blood Count 4.36 M/mm3 (4.2-5.4); Red Cell Distribution Width 15.5 % (11.5-14.5); White Blood Count 13.4 K/mm3 (4.5-10.0)
[2022-12-19 12:56] LABS: Appearance Urine Cloudy (Clear); Bacteria Urine 2+ /hpf; Bilirubin Urine Negative (Negative); Blood Urine Negative (Negative); Color Urine Dark Yellow (Yellow); Glucose Urine UA Negative (Negative); Ketones Urine Trace mg/dL (Negative); Leukocyte Esterase Ur Trace LEU/UL (NEGATIVE); Nitrate Urine Negative (Negative); Non Pathogenic Casts 0-2; Protein Urine Trace mg/dL (Negative); RBC Urine 0-2 /hpf (0-2); Specific Grav Ur 1.026 (1.001-1.035); Squamous Epithelial Cell Urine Few /hpf (Few); pH Urine 5.5 (5.0-9.0)
[2022-12-19 12:57] LABS: Add Urine Microscopic? YES
[2022-12-19 13:10] LABS: Creatinine Urine 196.7 mg/dL
[2022-12-19 13:14] LABS: Alanine Aminotransferase 13 U/L (6-35); Albumin Level 3.7 g/dL (3.5-5.1); Alkaline Phosphatase 94 U/L (38-126); Anion Gap 9 mmol/L (8-16); Aspartate Amino Transferase 20 U/L (14-36); Bilirubin,Total 0.6 mg/dL (0.2-1.3); Blood Urea Nitrogen 7 mg/dL (7-17); Calcium 7.8 mg/dL (8.4-10.2); Carbon Dioxide 19 mmol/L (22-30); Chloride 106 mmol/L (98-107); Estimated Glomerular Filt Rate > 60; Glucose 79 mg/dL (65-110); Potassium 3.5 mmol/L (3.4-5.0); Sodium 134 mmol/L (137-145); Uric Acid 3.3 mg/dL (2.5-7.5)
[2022-12-19 13:52] LABS: Total Protein Urine Random < 5 mg/dL; Ur Ttl Prot Creatinine Ratio < 0.03 mg/mg (0-0.20)
== END 2022-12-19 13:55 | disposition home or self-care (01) ==
LOC: ANHOBOP 12:00 → ANHOBPP 12:01
PROVIDERS: PCP Family Medicine; Visit Provider Advanced Practice Midwife
DX: O13.9 Gestational [pregnancy-induced] hypertension without significant proteinuria, unspecified trimester (principal); Z3A.00 Weeks of gestation of pregnancy not specified
CPT/HCPCS: 36415; 59025; 80053; 81001; 82570; 84156; 84550; 85025; 87086; 87088; 99199

== ENCOUNTER 2023-03-09 10:06 | Inpatient (IN) | payer MEDICAID, SELFPAY ==
[2023-03-09] VITALS (18 sets, daily range): BP systolic 113–153; BP diastolic 57–126; PULSE 81–123; RESP 16–20; TEMP 36.2–36.9; O2SAT 95–99; BMI 44.9
[2023-03-09 10:47] LABS: Glucose Point of Care 102 mg/dl (65-105)
[2023-03-09 10:53] LABS: Basophils Percent Auto 0.3 % (0.2-1.2); Eosinophils Percent Auto 0.4 % (0-4.4); Hematocrit 37.2 % (37.0-47.0); Hemoglobin 12.3 g/dL (12.0-15.0); Immature Granulocyte Absolute 0.06 K/mm3 (0.00-0.031); Immature Granulocyte Percent A 0.5 % (0-0.5); Lymphocytes Absolute Auto 1.83 K/mm3 (0.9-3.2); Lymphocytes Percent Auto 16.3 % (18.3-44.2); Mean Corpuscular HGB Conc 33.1 g/dl (32-36); Mean Corpuscular Hemoglobin 28.3 pg (26-34); Mean Corpuscular Volume 85.5 fl (80-100); Mean Platelet Volume 9.8 fl (7.4-10.4); Monocytes Absolute Auto 1.1 K/mm3 (0.1-0.6); Monocytes Percent Auto 9.8 % (2.6-8.5); Neutrophils Absolute Auto 8.2 K/mm3 (1.3-6.7); Neutrophils Percent Auto 72.7 % (45.5-73.1); Platelet Count Result 370 k/mm3 (150-375); Red Blood Count 4.35 M/mm3 (4.2-5.4); Red Cell Distribution Width 15.4 % (11.5-14.5); White Blood Count 11.3 K/mm3 (4.5-10.0)
--- NOTE | 2023-03-09 11:12 | WPDOBADMIT ---
Obstetrics - Admit Note Admission Note: record reviewed. No pertinent additions to the history and/or any subsequent changes in the physical findings that are not consistent with the expected course of the were found. Pt in labor SVE 7-8/80/-2 AROM clear odorless fluid, GDMA-2, CP, anxiety, anticipate vaginal delivery Additions to the history and/or subsequent changes in the physical findings follow. None.
--- NOTE | 2023-03-09 11:24 | LDADM ---
This patient, Angella Santos, was admitted to Labor/Delivery/Recovery 109 on 03/09/23 at 10:06. Plans for labor, pain management and were discussed with patient. Patient/family oriented to hospital policies and general routines including ID bracelet, bed and alarms, visiting hours, pain management, procedures, bathroom and other care routines, personal items, smoking policy, room service/diet and guest tray routines, security routines, and visiting hours. Patient/Family are encouraged to report perceived risks to care and to ask questions if they do not understand what they are told or what they should do. See OBIX for further documentation.
[2023-03-09] MEDS: LACTATED RINGERS 1,000 ML 125 ML IV CONT (11:45)
[2023-03-09] MEDS: OXYTOCIN 30 UNITS/NS 500 ML 30 UNITS/500 ML BAG IV CONT (11:45)
--- NOTE | 2023-03-09 13:36 | P.PCNOB_ITS ---
OB - Delivery Note Procedure Delivery date: 03/09/23 Procedure: Events: Gestational Diabetes Induction method: None Delivery augmentation: Rupture of Membranes and Pitocin Delivery monitor: External FHT and External Uterine Route of delivery: Specimen: Yes Quantitative Blood Loss (ml): 75 Anesthesia type: None Disposition: Floor [place] Baby Date of : 03/09/23 Time of : 13:26 Weeks of gestation at delivery: 37 gender: Male presentation: vertex position: Left Occiput Anterior Placenta delivery description: Spontaneous Cord Vessel Description: 3 Vessels, Clamped/Cut and Delayed Cord Clamping score one minute: 7 score five minutes: 8 Narrative: mother and baby skin to skin in stable condition
[2023-03-09] MEDS: OXYTOCIN 30 UNITS/NS 500 ML 30 UNITS/500 ML BAG 125 UNITS IV CONT (14:00)
[2023-03-09] MEDS: WITCH HAZEL 40 PADS 1 PAD TOPICAL (15:34)
[2023-03-09] MEDS: BENZOCAINE 20% AER SPR (*SP) 56 GM CAN 1 SPRAY TOPICAL (15:34)
--- NOTE | 2023-03-09 16:22 | PC.NURSE ---
Patient transferred to post room #277 via wheelchair. Support person present. Oriented to unit, room, information board, rooming in, admission packet and security measures, patient also uses a walker and had hers at the bedside. Patient verbalizes understanding.
[2023-03-09] MEDS: IBUPROFEN 600 MG TABLET PO (16:58)
[2023-03-10] MEDS: IBUPROFEN 600 MG TABLET PO (04:15)
[2023-03-10 05:29] LABS: Hematocrit 33.6 % (37.0-47.0); Hemoglobin 10.9 g/dL (12.0-15.0)
--- NOTE | 2023-03-10 07:20 | PM.OBPNVD ---
OB - PN: Subj Subjective Date/time seen: 03/10/23 07:20 Patient comments: no complaints and pain well controlled baby status: doing well and nursing well [place] feeding status: exclusively breast feeding OB - PN: Obj Data Labs 03/10/23 04:05 Labs: Laboratory Results - last 24 hr 03/09/23 03/09/23 03/10/23 10:40 10:41 04:05 WBC 11.3 H RBC 4.35 Hgb 12.3 10.9 L Hct 37.2 33.6 L MCV 85.5 MCH 28.3 MCHC 33.1 RDW 15.4 H Plt Count 370 MPV 9.8 Immature Gran % (Auto) 0.5 Neut % (Auto) 72.7 Lymph % (Auto) 16.3 L [place] % (Auto) 9.8 H Eos % (Auto) 0.4 Baso % (Auto) 0.3 Lymph # (Auto) 1.83 [place] # (Auto) 1.1 H Eos # (Auto) 0.0 Baso # (Auto) 0.0 Abs Immat Gran (auto) 0.06 H Absolute Neuts (auto) 8.2 H Absolute Nucleated RBC 0.0 Nucleated RBC % 0.0 POC Capillary Glucose 102 Blood Type O Positive Antibody Screen Negative OB - PN A/P Plan day: 1 Plan: routine care Comments: circ tomorrow DC home tomorrow Time Spent With Patient Time: Total time spent is greater than 50% in coordination of care (as documented) at patient's floor/unit and/or counseling patient: Time with patient: less than 15 minutes Exam Narrative: NAD abdomen soft, nontender, fundus firm below the umbilicus Extremities nontender, 1+ edema
[2023-03-10] MEDS: ACETAMINOPHEN 325 MG TABLET 650 MG PO (08:27)
[2023-03-10] MEDS: MULTIVIT/MIN/PREN/FOL AC/IRON TABLET 1 TAB PO (08:27)
[2023-03-10 08:28] VITALS: BP 120/70; PULSE 98; RESP 18; TEMP 36.3; O2SAT 75
[2023-03-10 08:30] VITALS: BP 120/70; PULSE 75; RESP 18; TEMP 36.3; O2SAT 98
[2023-03-10 09:58] LABS: Rapid Plasma Reagin Non-Reactive (NonReactive)
[2023-03-10 11:48] VITALS: BP 121/63; PULSE 82; RESP 18; TEMP 36.7; O2SAT 97
--- NOTE | 2023-03-10 12:12 | PC.NURSE ---
Addendum entered by Christine Bermeo RN 03/10/23 12:17: We discussed the tight upper lip frenulum. Mother states other children has had lip and tongue tie. We reviewed if her is able to latch optimally without pain and effectively breastfeed, then we may not need to address the tight lip, however, to discuss it with the Set Staff Fitter. Mother voiced her confidence with her without pain with exception to pinching at times that was relieved with good positioning and a deep latch. Original Note: [id number] Introductions were made, then consulted with patient to assess needs related to . Mother led the conversation with her?plans to feed?her infant, the?experience so far, her history her other children and still the fifth child. Mother states she is having difficulty waking her infant up to breastfeed. Encouraged understanding of the benefits of skin to skin (demonstrating unwrapping and placing upright on her chest), stimulating with massage touch, changing positions to encourage wakefulness, how to watch for early feeding cues, responsive feeding, feeding on demand (aiming for 8-12 times in 24 hours, about every 2-3 hours), milk production, hand expression, building/maintaining a milk supply, duration of feeding, signs of adequate intake/output and how to record on the feeding sheet. Reviewed positioning, alignment, supporting the breast to facilitate a deep latch, asymmetrical latch (off-center), leading with the chin with a big, open, wide gape and body close to mother. Mother independently latched their optimally to the right breast in football position. Education given to mother of how to visualize suck/swallow ratios and listen for drinking at the breast. was able to maintain latch without discomfort to mother. Nipple care reviewed with optimal latch and good positioning. Reviewed good handwashing when or touching the breast/nipples to prevent infection. Reminded mother to encouraged the infant to breastfeed first and often before her toddler. Mother voiced understanding of skin to skin, stimulating with massage touch, responsive feedings, hand expressed colostrum, talking to to encourage if it has been 2 -2.5 hours since the start of the last , to call if infant does not latch, or if there is discomfort with . Resources provided for inpatient/outpatient with feeding sheet and the mom/baby guide. Mother voiced understanding of information, demonstrated learning and will call if there is a request for assistance. Reported to the Primary RN.
[2023-03-10 20:00] VITALS: BP 117/64; PULSE 85; RESP 18; TEMP 36.8
[2023-03-11] MEDS: ACETAMINOPHEN 325 MG TABLET 650 MG PO ×2 (00:20→10:20)
[2023-03-11] MEDS: IBUPROFEN 600 MG TABLET PO ×2 (04:30→10:21)
[2023-03-11 07:30] VITALS: BP 123/72; PULSE 91; RESP 18; TEMP 36.4; O2SAT 99
--- NOTE | 2023-03-11 07:43 | PM.OBPNVD ---
OB - PN: Subj Subjective Date/time seen: 03/11/23 07:43 Interval history: post day 2 doing well d/c home OB - PN: Obj Data Labs 03/10/23 04:05 Labs: Laboratory Results - last 24 hr 03/09/23 10:40 RPR Non-reactive OB - PN A/P Plan day: 2 Plan: routine care and discharge home Time Spent With Patient Time: Total time spent is greater than 50% in coordination of care (as documented) at patient's floor/unit and/or counseling patient: Review of Systems Review of Systems: All systems reviewed & are unremarkable except as noted in HPI and below Exam Const: General: cooperative, healthy appearing and comfortable Chest: Chest palpation & inspection: normal inspection of the chest Resp: Effort & Inspection: normal respiratory effort Cardio: Rate: regular rate Rhythm: regular rhythm GI: Inspection: normal to inspection Skin: General skin exam: normal color Extrem: Right lower extremity: normal to inspection Left lower extremity: normal to inspection Psych: Appearance: grossly normal
--- NOTE | 2023-03-11 07:45 | PC.NURSE ---
PT introductions made and plan of care discussed per post , pain management, breast feeding, daily care activities and pending discharge to home. PT sole recipient of such instructions and no barriers to learning identified at this time. PT received such instructions per one to one discussion, mom baby care guide and demonstrations this shift. PT verbalized understanding of such care.
--- NOTE | 2023-03-11 07:46 | PM.OBDSVD ---
DS: Admitting Diagnosis Discharge Date 03/11/23 Admitting Diagnosis Labor, GDMA-2 DS: Discharge Diagnosis Discharge Diagnosis (1) Vaginal delivery: Code(s): O80 - Encounter for full-term uncomplicated delivery Status: Acute OB - DS: Summary OB Procedures : None OB Procedures Intrapartum: Spontaneous Vag Delivery OB Procedures: : None Time Spent with Patient Time attestation: Total time spent providing and/or coordinating discharge services: DS: Data Data Completed and Pending Pending studies at discharge: Pending at discharge 03/09/23 13:59 Surgical [PTH] Routine Labs on day of discharge: Labs from last 24 hours 03/09/23 10:40 RPR Non-reactive Discharge Plan Discharge Attending physician on discharge: Olimpia Rogers Discharging Clinician: Michelle Borja Patient Disposition: Home, Self-Care Activity: pelvic rest Diet: regular Discharge Instructions: Education: Mom and Baby Guide Given to: Mother Follow-Up: Call your delivering provider's office for an appointment to be seen in: 1 Week Mom and baby should come to the [facility] for the follow-up appointment. Appointment Date/Time: March 13, 2023 at 11:00 am What to expect at your follow-up visit: Blood Pressure Check Call [phone] if you are unable to keep your appointment time. BREAST CARE: * Wear a snug supportive bra. * For engorgement discomfort: Breast Feeding: * Apply warm moist washcloths * Express milk as needed to relieve engorgement * Wear loose clothing Bottle Feeding: * May apply ice packs * For sore nipples: * Identify correct latch-on * Apply warm moist washcloths before and after nursing * Air dry nipples after nursing * May apply Lansinoh cream to nipples PERINEAL CARE: * Until bleeding stops, use your sanford bottle after urinating * Change your pad frequently throughout the day * You may take sitz baths several times a day (fill your bathtub with warm water and soak for 20 minutes.) Do NOT bathe in the water * No tub baths until seen by your physician - You may shower ACTIVITY: * Rest as much as possible. * Do not exercise or lift anything heavier than your baby (such as laundry or other children.) * Avoid stairs or driving as much as possible. * Do not put anything into the vagina. No douching, tampons, or sexual activity until seen by physician. NOTIFY PHYSICIAN IF YOU HAVE ANY QUESTIONS OR IF ANY OF THE FOLLOWING SYMPTOMS OCCUR: * If your perineum becomes red, swollen, or more painful than what you have experienced in the hospital. * If your vaginal bleeding becomes foul smelling. * If your vaginal bleeding becomes more heavy than a period or if your bleeding changes from pink to bright red. However, you may pass an occasional walnut-sized clot once or twice for the first week . * If you experience a sharp, shooting pain in you calves. * If you discover a hard, reddened area on your breast or if you experience flu-like symptoms. * If you have a fever of 100.4 or greater DIET: * Eat regular, well-balanced meals. * Drink plenty of fluids daily. If , drink to thirst. Patient Instructions: Antibiotic Form Stand Alone Forms: General Discharge Information Follow-up/Referrals: Michelle Borja CNM [Certified Nurse Wide Piece Goods Inspector] - Discharge Medications: Continued ibuprofen 600 mg Tablet 600 mg PO Q6H PRN (Reason: Cramping) Qty: 30 0RF 19 29 mg iron- 1 mg Tablet,Chewable 1 tablet PO DAILY Date of admission: 03/09/23 10:06 Primary Care Provider: Parminder,Tana Bellamy Admitting Provider: Olimpia Rogers Attending physician on admission: Olimpia Rogers Condition: Stable
[2023-03-11 10:22] VITALS: PULSE 91; RESP 18; O2SAT 99
[2023-03-11] MEDS: DOCUSATE SODIUM 100 MG CAPSULE PO (10:22)
--- NOTE | 2023-03-11 13:30 | PC.NURSE ---
Pt received discharge instructions per protocol and verbalized understanding of such care.
--- NOTE | 2023-03-11 13:30 | PC.NURSE ---
Patient was given the opportunity to view the discharge video Mother & Baby Care, The First Two Weeks and to ask questions. Patient declined viewing the video and has been given the mother/baby guide for home reference.
--- NOTE | 2023-03-11 13:55 | PC.NURSE ---
PT discharged to home via wheelchair accompanied by spouse and and taken to waiting car. Follow up appts confirmed
[2023-03-13 10:59] VITALS: BP 119/78; PULSE 85; RESP 20; TEMP 36.7; O2SAT 99
== END 2023-03-11 13:55 | disposition home or self-care (01) | DRG 560 ==
LOC: ANHLDR 10:25 → ANHOB2 16:45
PROVIDERS: Admitting Provider Obstetrics & Gynecology; PCP Family Medicine; Referring Provider Advanced Practice Midwife; Visit Provider Obstetrics & Gynecology
DX: O24.429 Gestational diabetes mellitus in childbirth, unspecified control (principal); Z37.0 Single live birth; O99.344 Other mental disorders complicating childbirth; F41.9 Anxiety disorder, unspecified; Z3A.37 37 weeks gestation of pregnancy
CPT/HCPCS: 36415; 82948; 85014; 85018; 85025; 86592; 86850; 86900; 86901; 88307; A9270; J2590; J7120

== ENCOUNTER 2025-04-27 13:16 | Outpatient (CLI) | payer BC, SELFPAY ==
--- NOTE | ~2025-04-27 | XR_ITS ---
EXAMINATION: XR chest 2V, 04/27/2025 14:35 CDT HISTORY: shortness of breath COMPARISON: No comparisons available. Technique: 2 views obtained. Findings: The lungs are clear, no effusion. No pneumothorax. Heart is normal size. Mediastinal and hilar contours are within normal limits. Bony thorax no acute abnormality. Impression: No acute cardiopulmonary abnormality. Reviewed, dictated and finalized at location P. Impression: No acute cardiopulmonary abnormality.
--- NOTE | 2025-04-28 07:19 | P.PCNPFT_ITS ---
PFT Procedure Performed PFT Procedure Performed Plethysmography (Lung Vol) Diffusing Cap (DLCO) Flow Vol Loop Spirometry w/o Bronchodil PFT Interpretation This is a pulmonary function test with spirometry, plethysmography and diffusing capacity. The test was performed and results interpreted in accordance with the 2019 and 2005 ATS/ERS Task Force guidelines respectively using the Global Lung Function Initiative-2012 reference equations. Patient demonstrated good effort and cooperation. Reproducibility criteria were met. The quality of the spirometry maneuver was Grade A. Findings: Spirometry: There is a mid expiratory plateau or knee pattern in 2 of 3 efforts. The contour the inspiratory flow tracing is normal. The FVC is 2.77 L, 103% predicted. The FEV1 is 2.31 L, 101% predicted. The FEV1: FVC ratio is 83%. Plethysmography: The total lung capacity is 4.40 L, 116% predicted. The f unctional residual capacity is 1.77 L, 91% predicted. The residual volume is 1.63 L, 146% predicted. Diffusing capacity: The diffusing capacity unadjusted for hemoglobin and carboxyhemoglobin is 19.3, 85% predicted. The diffusing capacity adjusted for alveolar volume is 5.66, 111% predicted. 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 The normal variant is more common in younger female patients, decreases with age and is more pronounced in the post bronchodilator efforts. The pattern has also been described with kyphosis, kyphoscoliosis, central obstructing mass, and post lung transplantation. Otherwise, the spirometry is normal without evidence of an obstructive abnormality. The lung volumes are normal. The diffusing capacity is normal. There are no prior studies for comparison
== END 2025-04-27 13:17 | disposition home or self-care (01) ==
PROVIDERS: PCP Emergency Medicine; Visit Provider Emergency Medicine
DX: R06.02 Shortness of breath (principal)
CPT/HCPCS: 71046; 94375; 94726; 94729

== ENCOUNTER 2025-07-04 18:41 | Emergency (ER) | payer BC, SELFPAY ==
[2025-07-04 18:55] VITALS: BP 135/80; PULSE 109; RESP 16; TEMP 36.6; O2SAT 98
--- NOTE | 2025-07-04 19:53 | ED.DENTAL ---
HPI - Dental/Oral General Chief complaint: Dental/Oral Stated complaint: TOOTHACHE Time Seen by Provider: 07/04/25 19:49 Source: patient and RN notes reviewed Mode of arrival: ambulatory Limitations: no limitations History of Present Illness HPI Narrative: 35-year-old female patient presents today complaining of left lower dental pain. States the affected tooth has been cracked for approximately 1 year and she felt a, ?burst? while at work today with some foul tasting material in her mouth following. Currently rates her pain 9/10 and has taken no OTC medication for symptoms prior to arrival. Denies shortness of breath, difficulty swallowing, trismus. She does have a dentist but has not seen them in some time. Related Data Home Medications ?Medication ?Instructions ?Recorded ?Confirmed ?Last Taken ?Type vitamins no.115-iron 29 1 tablet PO DAILY 10/07/19 05/28/23 06/17/21 08:00 History mg-folic acid 1 mg chewable tablet ( 19) ergocalciferol (vitamin D2) 1,250 50,000 unit PO WEEKLY 05/28/23 05/28/23 05/26/23 History mcg (50,000 unit) capsule hydroxyzine HCl 25 mg tablet mg 07/04/25 Unknown History levonorgestrel 1.5 mg tablet mg 07/04/25 Unknown History (Aftera) norethindrone (contraceptive) 0.35 mg 07/04/25 Unknown History mg tablet Allergies Allergy/AdvReac Type Severity Reaction Status Date / Time hydrocodone AdvReac Unknown ITCHING Verified 07/04/25 19:07 [facility] Past Medical History Medical History Umbilical hernia induced hypertension Cerebral palsy Surgical History Surgical History History of umbilical hernia repair Social History Social History Smoking status: Never smoker Substance use: never Lack of Transportation: No Lack of Food: Never True Current Housing: I Have Housing Concerned About Future Housing: No Difficulty Paying Gas/Electric Bills: No Difficulty Paying for Meds: No Currently Unemployed: No Education: Master's Degree or Higher Difficulty w/ Childcare or Family Care: No Gender identity (if verbalized by the patient): Female Spiritual care concerns: No Comments At time of signature, I have reviewed and agree with nursing past medical, surgical, social and family history unless otherwise noted. Please see nursing chart for further information. There is no relevant family history pertinent to the presenting complaint Exam Narrative: GENERAL: Well-appearing, well-nourished, and in no acute distress. HEAD: Normocephalic, atraumatic. EYES: EOMI. No redness or drainage. Conjunctivae normal. ENT: Mucous membranes pink and moist. Tooth 19 is broken with mild surrounding erythema at the gumline. No obvious ruptured abscess noted. No trismus or facial swelling noted. NECK: Normal AROM. Supple. No lymphadenopathy. CHEST: No respiratory distress. Clear to auscultation. HEART: Regular rate and rhythm. No murmur appreciated. Normal peripheral pulses. ABDOMEN: Soft, nontender, nondistended, normal active bowel sounds. MUSCULOSKELETAL: No bony tenderness. EXTREMITIES: Normal range of motion. No edema. SKIN: Warm, dry, no rash. Capillary refill normal. Normal skin turgor. NEURO: No focal deficits. Alert and oriented x3. Gait steady. PSYCH: Normal affect. No signs of depression or anxiety. Course Course Level of Care: Express Care Visit Vital Signs Vital signs: Vital Signs Temperature 97.8 F 07/04/25 18:55 Pulse Rate 109 H 07/04/25 18:55 Respiratory Rate 16 07/04/25 18:55 Blood Pressure 135/80 07/04/25 18:55 Pulse Oximetry 98 07/04/25 18:55 Temperature 97.8 F 07/04/25 18:55 Pulse Rate 109 H 07/04/25 18:55 Respiratory Rate 16 07/04/25 18:55 Blood Pressure 135/80 07/04/25 18:55 Pulse Oximetry 98 07/04/25 18:55 Reviewed MDM MDM Narrative Medical decision making narrative: 35-year-old female patient presents today complaining of left lower dental pain. States the affected tooth has been cracked for approximately 1 year and she felt a, ?burst? while at work today with some foul tasting material in her mouth following. Currently rates her pain 9/10 and has taken no OTC medication for symptoms prior to arrival. Denies shortness of breath, difficulty swallowing, trismus. She does have a dentist but has not seen them in some time. Upon exam,Tooth 19 is broken with mild surrounding erythema at the gumline. No obvious ruptured abscess noted. No trismus or facial swelling noted. Patient will be prescribed some amoxicillin for presumed dental abscess. Recommend dental follow-up as well. Patient agrees with plan. Vital signs stable. Anticipatory guidance given. ED precautions given. Differential Diagnosis Differential Diagnosis: Dental abscess, infected dental caries, dental fracture Critical Care Time Critical Care Time Critical Care Time: No Discharge Plan Discharge Clinical Impression: Dental abscess Patient Disposition: Home Condition: Stable Instructions: Antibiotic Form, Dental Abscess (ED) Additional Instructions: Take the amoxicillin as prescribed until gone. Take Tylenol or ibuprofen if needed for pain. Follow-up with your dentist for further evaluation of your tooth. As discussed, please go to the ER immediately if you develop worsening symptoms such as fever, significant facial swelling, difficulty breathing, swallowing, or opening your mouth. Patient Language: Andorran Prescriptions: New amoxicillin 875 mg tablet 875 mg PO Q12H 10 Days Qty: 20 0RF No Action hydroxyzine HCl 25 mg tablet norethindrone (contraceptive) 0.35 mg tablet levonorgestrel [Aftera] 1.5 mg tablet ergocalciferol (vitamin D2) 1,250 mcg (50,000 unit) capsule 50,000 unit PO WEEKLY 19 29 mg iron- 1 mg Tablet,Chewable 1 tablet PO DAILY Follow-up/Referrals: Marcie,Belle Gunderson MD [Primary Care Provider, Unknown] Time of Disposition: 19:57
== END 2025-07-04 20:01 | disposition home or self-care (01) ==
PROVIDERS: Emergency Provider Nurse Practitioner; PCP Emergency Medicine
DX: K04.7 Periapical abscess without sinus (principal); G80.9 Cerebral palsy, unspecified
CPT/HCPCS: 99213; G0463